=== PATIENT | female | born 1945 | race Caucasian/White ===

== ENCOUNTER 2017-10-18 10:36 | Inpatient (IN) | payer OTHER ==
[~2017-10-18] VITALS: Ht 154.9 cm; Wt 107.2 kg
[2017-10-18 10:36] VITALS: BP 116/89
[~2017-10-18 10:36] MED LIST: NKHM; VICODIN 5/500 505 MG PO
[2017-10-18 11:13] VITALS: BP 149/59
[2017-10-18] MEDS ORDERED: Motrin,Rufen800 MG PO (11:16)
[2017-10-18 11:41] LABS: BASO # 0.1 10*3/uL (0.0-0.1); EOS # 0.1 10*3/uL (0.0-0.4); EOS % 0.7 % (1.0-4.0); HEMATOCRIT 49.9 % (37.0-47.0); HEMOGLOBIN 15.9 g/dl (12.0-16.0); LYMPH # 2.1 10*3/uL (1.3-4.4); LYMPH % 20.2 % (27.0-41.0); MEAN CELL VOLUME 88.3 fl (81.0-99.0); MEAN CORPUSCULAR HGB 28.1 pg (27.0-31.0); MEAN CORPUSCULAR HGB CONC 31.9 g/dl (33.0-37.0); MEAN PLATELET VOLUME 9.9 fl (9.6-12.3); MONO # 0.9 10*3/uL (0.1-1.0); MONO % 8.7 % (3.0-9.0); NEUT % 68.7 % (47.0-73.0); PLATELET COUNT AUTOMATED 257 10*3/uL (130-400); RED BLOOD COUNT 5.65 10*6/uL (4.10-5.10); RED CELL DISTRI WIDTH 15.1 % (0-14.5); WHITE BLOOD COUNT 10.2 10*3/uL (4.8-10.8)
[2017-10-18 11:49] LABS: INTERNATIONAL NORM RATIO 0.9 (2.0-3.5)
[2017-10-18 11:59] LABS: ALBUMIN 3.6 gm/dl (3.1-4.5); ALKALINE PHOSPHATASE 115 U/L (45-117); BUN 14 mg/dl (7-24); CHLORIDE 106 mmol/L (98-107); CREATININE 1.01 mg/dL (0.55-1.02); POTASSIUM 4.5 mmol/L (3.5-5.1); SGOT/AST 11 IU/L (3-35); SGPT/ALT 19 U/L (12-78); SODIUM 141 mmol/L (136-145)
[2017-10-18 12:00] LABS: TROPONIN I < 0.015 ng/ml (<0.045)
[2017-10-18 12:35] LABS: BILIRUBIN NEGATIVE (NEGATIVE); BLOOD TRACE-LYSED (NEGATIVE); CLARITY CLEAR (CLEAR); COLOR YELLOW (YELLOW); GLUCOSE NEGATIVE (NEGATIVE); KETONE NEGATIVE (NEGATIVE); LEUKO ESTERASE NEGATIVE (NEGATIVE); NITRITE NEGATIVE (NEGATIVE); PH 5.5 (5.0-9.0); SPECIFIC GRAVITY 1.025 (1.005-1.030); UROBILINOGEN 0.2 E.U./dl (0.2-1.0)
[2017-10-18 12:43] VITALS: BP 155/69
[2017-10-18 12:58] LABS: BACTERIA 2+; RBC 0-2 rbc/hpf (0-2); WBC 0-2 wbc/hpf (0-5)
[2017-10-18 13:36] VITALS: BP 131/61
[2017-10-18 14:54] VITALS: BP 151/79
[2017-10-18 20:00] VITALS: BP 133/41
[2017-10-19] VITALS: BP 141/54
[2017-10-19 06:31] LABS: BASO # 0.1 10*3/uL (0.0-0.1); BASO % 1.5 % (0.0-1.0); EOS # 0.3 10*3/uL (0.0-0.4); EOS % 2.7 % (1.0-4.0); HEMATOCRIT 49.1 % (37.0-47.0); HEMOGLOBIN 15.1 g/dl (12.0-16.0); LYMPH # 2.5 10*3/uL (1.3-4.4); LYMPH % 26.3 % (27.0-41.0); MEAN CELL VOLUME 89.1 fl (81.0-99.0); MEAN CORPUSCULAR HGB 27.4 pg (27.0-31.0); MEAN CORPUSCULAR HGB CONC 30.8 g/dl (33.0-37.0); MEAN PLATELET VOLUME 10.5 fl (9.6-12.3); MONO # 1.1 10*3/uL (0.1-1.0); MONO % 11.8 % (3.0-9.0); NEUT # 5.4 10*3/uL (2.3-7.9); NEUT % 57.3 % (47.0-73.0); PLATELET COUNT AUTOMATED 274 10*3/uL (130-400); RED BLOOD COUNT 5.51 10*6/uL (4.10-5.10); RED CELL DISTRI WIDTH 15.2 % (0-14.5); WHITE BLOOD COUNT 9.3 10*3/uL (4.8-10.8)
[2017-10-19 06:42] LABS: ALBUMIN 3.3 gm/dl (3.1-4.5); ALKALINE PHOSPHATASE 120 U/L (45-117); BUN 14 mg/dl (7-24); CHLORIDE 107 mmol/L (98-107); CREATININE 1.04 mg/dL (0.55-1.02); HDL CHOLESTEROL 42 mg/dl (40-60); PHOSPHOROUS 4.1 mg/dL (2.5-4.9); POTASSIUM 4.8 mmol/L (3.5-5.1); SGOT/AST 18 IU/L (3-35); SGPT/ALT 17 U/L (12-78); SODIUM 141 mmol/L (136-145); TOTAL PROTEIN 7.7 gm/dL (6.4-8.2); TRIGLYCERIDES 166 mg/dl (<150); VLDL CHOLESTEROL 33 mg/dL (6-40)
[2017-10-19 06:47] LABS: CHOLESTEROL 134 mg/dL (<200); FREE T4 0.77 ng/dl (0.76-1.46); LDL CHOLESTEROL 59 mg/dL (9-159)
[2017-10-19 07:33] LABS: VITAMIN D, 25-HYDROXY 10.3 ng/mL (30-100)
[2017-10-19 08:00] VITALS: BP 155/82
[2017-10-19 12:00] VITALS: BP 125/62
[2017-10-19 16:00] VITALS: BP 136/63
[2017-10-19 20:00] VITALS: BP 130/56
[2017-10-20] VITALS: BP 120/59
[2017-10-20 08:00] VITALS: BP 142/69
[2017-10-20 12:00] VITALS: BP 140/72
[2017-10-20] MEDS ORDERED: MECLIZINE HCL25 M2 PO (14:18)
[2017-10-20] MEDS ORDERED: VITAMIN D-32000 UNI1 PO (14:18)
== END 2017-10-20 15:15 | disposition home or self-care (01) | DRG 641 ==
LOC: ED 10:36 → 5E 13:47 → EDHOLD 13:47 → 5E 14:13
PROVIDERS: Nurse Practitioner Family; Registered Nurse
DX: E86.0 Dehydration (principal); E66.01 Morbid (severe) obesity due to excess calories; Z68.41 Body mass index [BMI] 40.0-44.9, adult; K59.00 Constipation, unspecified; F17.210 Nicotine dependence, cigarettes, uncomplicated; I65.23 Occlusion and stenosis of bilateral carotid arteries; R73.03 Prediabetes; R07.9 Chest pain, unspecified; Z71.6 Tobacco abuse counseling; Z90.710 Acquired absence of both cervix and uterus; Z82.49 Family history of ischemic heart disease and other diseases of the circulatory system; Z80.42 Family history of malignant neoplasm of prostate; Z82.0 Family history of epilepsy and other diseases of the nervous system

== ENCOUNTER → 2021-10-06 | Outpatient (CLI) | payer OTHER ==
[~2021-10-06] MED LIST changes: +MECLIZINE HCL25 M2 PO; +Motrin,Rufen800 MG PO; +OMNICEF300 MG PO; +VITAMIN D-32000 UNI1 PO
== END | disposition home or self-care (01) ==
LOC: US 08:01
PROVIDERS: ATTEND Nurse Practitioner Family
DX: R74.8 Abnormal levels of other serum enzymes (principal)

== ENCOUNTER → 2021-10-14 | Day surgery (SDC) | payer OTHER ==
[2021-10-09 14:29] VITALS: BP 101/65
[~2021-10-14] VITALS: Ht 157.4 cm; Wt 103.9 kg
[2021-10-14 08:00] VITALS: BP 143/52
[2021-10-14 09:58] VITALS: BP 144/80
[2021-10-14 10:14] VITALS: BP 169/67
[2021-10-14 10:27] VITALS: BP 124/77
[2021-10-14 10:41] VITALS: BP 132/57
[2021-10-14 10:58] VITALS: BP 119/31
== END | disposition home or self-care (01) ==
LOC: SDC 10-09 13:15
PROVIDERS: ATTEND Specialist
DX: J38.7 Other diseases of larynx (principal); K21.9 Gastro-esophageal reflux disease without esophagitis; F17.210 Nicotine dependence, cigarettes, uncomplicated; E66.01 Morbid (severe) obesity due to excess calories; Z79.899 Other long term (current) drug therapy

== ENCOUNTER → 2022-05-10 | Outpatient (CLI) | payer OTHER ==
[2022-05-10 10:22] LABS: HEMATOCRIT 39.1 % (37.0-47.0); MEAN CELL VOLUME 84.3 fl (81.0-99.0); MEAN CORPUSCULAR HGB 26.1 pg (27.0-31.0); MEAN CORPUSCULAR HGB CONC 30.9 g/dl (33.0-37.0); MEAN PLATELET VOLUME 9.4 fl (9.6-12.3); PLATELET COUNT AUTOMATED 498 10*3/uL (130-400); RED BLOOD COUNT 4.64 10*6/uL (4.10-5.10); RED CELL DISTRI WIDTH 17.1 % (0-14.5); WHITE BLOOD COUNT 10.6 10*3/uL (4.8-10.8)
[2022-05-10 10:37] LABS: MANUAL DIFF REFLEX YES
[2022-05-10 10:56] LABS: CREATININE 1.2 mg/dL (0.55-1.02); POTASSIUM 4.4 mmol/L (3.4-5.1)
[2022-05-10 11:02] LABS: BASOPHILS 2 % (0-1); TOTAL CELLS COUNTED 100 #CELLS
[2022-05-10 11:03] LABS: PLATELET SUFFICIENCY HIGH (NORMAL); POLYCHROMASIA SLIGHT; ROULEAUX MODERATE
[2022-05-10 13:54] LABS: VITAMIN D, 25-HYDROXY 15.1 ng/mL (30-100)
[2022-05-11 03:06] LABS: TOTAL PROTEIN, SERUM 9.6 g/dL (6.0-8.5)
[2022-05-11 15:07] LABS: A/G RATIO 0.5 (0.7-1.7); ALBUMIN 3.2 g/dL (2.9-4.4); ALPHA-1-GLOBULIN 0.5 g/dL (0.0-0.4); ALPHA-2-GLOBULIN 0.9 g/dL (0.4-1.0); BETA GLOBULIN 0.8 g/dL (0.7-1.3); GAMMA GLOBULIN 4.3 g/dL (0.4-1.8); GLOBULIN, TOTAL 6.4 g/dL (2.2-3.9)
[2022-05-12 00:06] LABS: FREE KAPPA LIGHT CHAINS 19.1 mg/L (3.3-19.4); FREE LAMBDA LIGHT CHAINS 183.9 mg/L (5.7-26.3); KAPPA/LAMBDA RATIO 0.1 (0.26-1.65)
== END | disposition home or self-care (01) ==
LOC: LAB 09:29
PROVIDERS: ATTEND Internal Medicine Nephrology
DX: N18.32 Chronic kidney disease, stage 3b (principal); R79.89 Other specified abnormal findings of blood chemistry; N25.81 Secondary hyperparathyroidism of renal origin; D63.1 Anemia in chronic kidney disease

== ENCOUNTER 2023-08-18 16:49 | Inpatient (IN) | payer OTHER ==
[~2023-08-18] VITALS: Ht 157.4 cm; Wt 89.0 kg
[2023-08-18 16:53] VITALS: BP 110/60
[2023-08-18 17:15] LABS: HEMATOCRIT 30.5 % (37.0-47.0); MEAN CELL VOLUME 70.3 fl (81.0-99.0); MEAN CORPUSCULAR HGB 19.6 pg (27.0-31.0); MEAN CORPUSCULAR HGB CONC 27.9 g/dl (33.0-37.0); MEAN PLATELET VOLUME 9.9 fl (9.6-12.3); PLATELET COUNT AUTOMATED 525 10*3/uL (130-400); RED BLOOD COUNT 4.34 10*6/uL (4.10-5.10); RED CELL DISTRI WIDTH 18.2 % (0-14.5); WHITE BLOOD COUNT 23.1 10*3/uL (4.8-10.8)
[2023-08-18 17:31] LABS: ACT PARTIAL THROMBO TIME 34.5 SECONDS (20.0-32.1); POTASSIUM 4.5 mmol/L (3.4-5.1); TOTAL PROTEIN 9.5 gm/dL (6.0-8.0)
[2023-08-18] MEDS ORDERED: Ceftriaxone Sodium 1 GM/10 ML SYR IV ONE (17:40)
[2023-08-18] MEDS ORDERED: Albuterol Sulf/Ipratropium 3 ML VIAL NEB ONE (17:40)
[2023-08-18] MEDS ORDERED: AZITHROMYCIN 250 ML IV ONE (17:40)
[2023-08-18] MEDS ORDERED: ACETAMINOPHEN 325 MG TAB PO ONE (17:40)
[2023-08-18] MEDS ORDERED: SODIUM CHLORIDE 0.9% 1,000 ML IV SCH (17:40)
[2023-08-18 17:41] LABS: MANUAL DIFF REFLEX YES
[2023-08-18 18:05] LABS: TOTAL CELLS COUNTED 100 #CELLS
[2023-08-18 18:06] LABS: PLATELET SUFFICIENCY HIGH (NORMAL); ROULEAUX MODERATE
[2023-08-18] MEDS ORDERED: Magnesium Hydroxide 30 ML UDC PO PRN (18:10)
[2023-08-18] MEDS ORDERED: Ondansetron Hydrochloride 4 MG/2 ML VIAL IV PRN (18:10)
[2023-08-18] MEDS ORDERED: ACETAMINOPHEN 325 MG TAB PO PRN (18:10)
[2023-08-18] MEDS ORDERED: SODIUM CHLORIDE 0.9% 1,000 ML IV ONE (18:15)
[2023-08-18] MEDS ORDERED: REMDESIVIR 200 MG in SODIUM CHLORIDE 0.9% 210 ML IV ONE (18:55)
[2023-08-18] MEDS ORDERED: Dexamethasone Sodium Phospha 4 MG/ML VIAL IV SCH (19:00)
[2023-08-18 19:39] VITALS: BP 88/42
[2023-08-18 20:56] VITALS: BP 100/52
[2023-08-18] MEDS ORDERED: HEPARIN SODIUM 5,000 UNIT/ML VIAL SC SCH (22:00)
[2023-08-18 22:23] VITALS: BP 93/46
[2023-08-18 23:00] VITALS: BP 102/54
[2023-08-19] VITALS (7 sets, daily range): BP systolic 97–132; BP diastolic 53–82
[2023-08-19 00:40] LABS: BILIRUBIN Negative (Negative); BLOOD 2+ (Negative); CLARITY Cloudy (Clear); COLOR Dark Yellow (Yellow); GLUCOSE Negative (Negative); KETONE Trace (Negative); LEUKO ESTERASE 2+ (Negative); NITRITE Positive (Negative); SPECIFIC GRAVITY 1.025 (1.001-1.030)
[2023-08-19 01:03] LABS: BACTERIA 3+; RBC 21-30 rbc/hpf (0-2); WBC 31-40 wbc/hpf (0-5)
[2023-08-19 06:24] LABS: BASO % 0.1 % (0.0-1.0); EOS % 0.2 % (1.0-4.0); LYMPH # 0.7 10*3/uL (1.3-4.4); LYMPH % 4.2 % (27.0-41.0); MEAN CELL VOLUME 70.9 fl (81.0-99.0); MEAN CORPUSCULAR HGB 19.7 pg (27.0-31.0); MEAN CORPUSCULAR HGB CONC 27.8 g/dl (33.0-37.0); MEAN PLATELET VOLUME 10.4 fl (9.6-12.3); MONO # 0.8 10*3/uL (0.1-1.0); MONO % 4.7 % (3.0-9.0); NEUT # 15.2 10*3/uL (2.3-7.9); NEUT % 89.5 % (47.0-73.0); PLATELET COUNT AUTOMATED 442 10*3/uL (130-400); RED BLOOD COUNT 3.81 10*6/uL (4.10-5.10); RED CELL DISTRI WIDTH 18.3 % (0-14.5)
[2023-08-19 06:46] LABS: ALKALINE PHOSPHATASE 92 U/L (46-116); BUN 31 mg/dl (9-23); CHLORIDE 108 mmol/L (98-107); CHOLESTEROL 37 mg/dL (<200); LDL CHOLESTEROL 17 mg/dL (9-159); POTASSIUM 4.6 mmol/L (3.4-5.1); SGPT/ALT 13 U/L (5-49); TOTAL PROTEIN 8.5 gm/dL (6.0-8.0); TRIGLYCERIDES 44 mg/dl (<150)
[2023-08-19] MEDS ORDERED: Ceftriaxone Sodium 1 GM in SYRINGE INFUSION 10 ML IV SCH (17:00)
[2023-08-19] MEDS ORDERED: AZITHROMYCIN 250 ML IV SCH (18:00)
[2023-08-19] MEDS ORDERED: REMDESIVIR 100 MG in SODIUM CHLORIDE 0.9% 230 ML IV SCH (18:00)
[2023-08-20 00:14] VITALS: BP 128/82
[2023-08-20 06:31] LABS: HEMATOCRIT 29.7 % (37.0-47.0); MANUAL DIFF REFLEX YES; MEAN CELL VOLUME 71.6 fl (81.0-99.0); MEAN CORPUSCULAR HGB CONC 27.9 g/dl (33.0-37.0); MEAN PLATELET VOLUME 10.1 fl (9.6-12.3); PLATELET COUNT AUTOMATED 532 10*3/uL (130-400); RED BLOOD COUNT 4.15 10*6/uL (4.10-5.10); RED CELL DISTRI WIDTH 17.9 % (0-14.5); WHITE BLOOD COUNT 25.3 10*3/uL (4.8-10.8)
[2023-08-20 06:52] LABS: BUN 32 mg/dl (9-23); CHLORIDE 108 mmol/L (98-107); POTASSIUM 4.6 mmol/L (3.4-5.1)
[2023-08-20 07:03] LABS: POLYCHROMASIA SLIGHT; TOTAL CELLS COUNTED 100 #CELLS
[2023-08-20 07:04] LABS: BURR CELLS MODERATE; MICROCYTOSIS SLIGHT; PLATELET SUFFICIENCY HIGH (NORMAL); ROULEAUX MODERATE; TARGET CELLS FEW; TOXIC GRANULATION SLIGHT
[2023-08-20 08:00] VITALS: BP 147/92
[2023-08-20 12:00] VITALS: BP 129/70
[2023-08-20 16:00] VITALS: BP 104/51
[2023-08-20 20:00] VITALS: BP 108/61
[2023-08-21] VITALS: BP 126/79
[2023-08-21 07:30] LABS: BASO % 0.2 % (0.0-1.0); HEMATOCRIT 30.4 % (37.0-47.0); LYMPH # 0.8 10*3/uL (1.3-4.4); MEAN CELL VOLUME 71.5 fl (81.0-99.0); MEAN CORPUSCULAR HGB 20.2 pg (27.0-31.0); MEAN CORPUSCULAR HGB CONC 28.3 g/dl (33.0-37.0); MEAN PLATELET VOLUME 10.1 fl (9.6-12.3); MONO # 1.2 10*3/uL (0.1-1.0); MONO % 6.4 % (3.0-9.0); NEUT # 16.9 10*3/uL (2.3-7.9); PLATELET COUNT AUTOMATED 644 10*3/uL (130-400); RED BLOOD COUNT 4.25 10*6/uL (4.10-5.10); RED CELL DISTRI WIDTH 18.9 % (0-14.5); WHITE BLOOD COUNT 19.2 10*3/uL (4.8-10.8)
[2023-08-21 08:00] VITALS: BP 128/58
[2023-08-21 08:09] LABS: POTASSIUM 4.6 mmol/L (3.4-5.1)
[2023-08-21 12:00] VITALS: BP 137/69
[2023-08-21 16:00] VITALS: BP 116/75
[2023-08-21 20:00] VITALS: BP 121/69
[2023-08-21] MEDS ORDERED: CALCIUM (TUMS) 500MG PO PRN (20:55)
[2023-08-22] VITALS: BP 144/85
[2023-08-22 06:07] LABS: HEMATOCRIT 30.4 % (37.0-47.0); MEAN CELL VOLUME 70.9 fl (81.0-99.0); MEAN CORPUSCULAR HGB 19.8 pg (27.0-31.0); MEAN PLATELET VOLUME 10.2 fl (9.6-12.3); PLATELET COUNT AUTOMATED 554 10*3/uL (130-400); RED BLOOD COUNT 4.29 10*6/uL (4.10-5.10); RED CELL DISTRI WIDTH 18.8 % (0-14.5); WHITE BLOOD COUNT 12.4 10*3/uL (4.8-10.8)
[2023-08-22 06:19] LABS: CHLORIDE 108 mmol/L (98-107); MANUAL DIFF REFLEX YES; POTASSIUM 4.8 mmol/L (3.4-5.1)
[2023-08-22 06:24] LABS: BUN 22 mg/dl (9-23)
[2023-08-22 07:16] LABS: MICROCYTOSIS SLIGHT; PLATELET SUFFICIENCY HIGH (NORMAL); POLYCHROMASIA SLIGHT; TOTAL CELLS COUNTED 100 #CELLS
[2023-08-22 07:17] LABS: ROULEAUX MODERATE
[2023-08-22 08:00] VITALS: BP 136/65
[2023-08-22] MEDS ORDERED: DEXAMETHASONE6 MG PO (11:02)
[2023-08-22] MEDS ORDERED: ZITHROMAX250 MG PO (11:02)
[2023-08-22 12:00] VITALS: BP 121/57
== END 2023-08-22 13:19 | disposition home or self-care (01) | DRG 871 ==
LOC: ED 16:49 → 4E 17:53 → EDHOLD 17:53 → 4E 21:52
PROVIDERS: Emergency Medicine; Student in an Organized Health Care Education/Training Program; ADMIT Internal Medicine; ATTEND Internal Medicine
PROC: XW033E5 Introduction of Remdesivir Anti-infective into Peripheral Vein, Percutaneous Approach, New Technology Group 5 (ICD-10-PCS; principal; 2023-08-19)
DX: A41.9 Sepsis, unspecified organism (principal); E43 Unspecified severe protein-calorie malnutrition; J96.01 Acute respiratory failure with hypoxia; N17.0 Acute kidney failure with tubular necrosis; U07.1 COVID-19; E87.1 Hypo-osmolality and hyponatremia; E66.01 Morbid (severe) obesity due to excess calories; R65.20 Severe sepsis without septic shock; D50.9 Iron deficiency anemia, unspecified; D75.839 Thrombocytosis, unspecified; E83.51 Hypocalcemia; R73.9 Hyperglycemia, unspecified; Z68.35 Body mass index [BMI] 35.0-35.9, adult; Z88.8 Allergy status to other drugs, medicaments and biological substances; Z90.710 Acquired absence of both cervix and uterus; Z98.891 History of uterine scar from previous surgery; Z80.42 Family history of malignant neoplasm of prostate; Z81.8 Family history of other mental and behavioral disorders; Z71.6 Tobacco abuse counseling

== ENCOUNTER → 2023-09-28 | Day surgery (SDC) | payer OTHER ==
[~2023-09-28] VITALS: Ht 154.9 cm; Wt 86.2 kg
[~2023-09-28] MED LIST changes: +Balanced Salt Solution 500 ML OPH SCH; +Cefuroxime Sodium 5 MG in BALANCED SALT IRRIG SOLN NO.2 0.5 ML,SYRINGE, DISPOSABLE, 10 ... IO SCH; +DEXAMETHASONE6 MG PO; +Midazolam Hydrochloride 2 MG/2 ML VIAL IV ONE; +OFLOXACIN 0.3% 5 ML BOTTLE ONE; +OFLOXACIN 0.3% 5 ML BOTTLE OPH SCH; +PHENYLEPHRINE/KETOROLAC 4 ML in Balanced Salt Solution 500 ML OPH SCH; +POVIDONE IODINE 5% OPHTHALMIC 30 ML BOTTLE OPH ONE; +POVIDONE IODINE 5% OPHTHALMIC 30 ML BOTTLE OPH SCH; +Phenylephrine Hydrochloride 2 ML BOT OPH ONE; +Phenylephrine Hydrochloride 2 ML BOT OPH SCH; +Proparacaine Hydrochloride 15 ML BOT OPH ONE; +Proparacaine Hydrochloride 15 ML BOT OPH SCH; +SODIUM CHLORIDE 0.9% 1,000 ML IV ONE; +SODIUM CHLORIDE 0.9% 1,000 ML IV SCH; +TROPICAMIDE 3 ML BOT OPH ONE; +TROPICAMIDE 3 ML BOT OPH SCH; +Tetracaine Hydrochloride 0.5% 4 ML BOT OPH ONE; +Tetracaine Hydrochloride 0.5% 4 ML BOT OPH SCH; +ZITHROMAX250 MG PO; +prednisoLONE acetate 1% OPHTHALMIC 5 ML BOT OPH ONE; +prednisoLONE acetate 1% OPHTHALMIC 5 ML BOT OPH SCH
[2023-09-28 12:00] VITALS: BP 116/56
[2023-09-28 13:35] VITALS: BP 139/61
[2023-09-28 13:50] VITALS: BP 131/96
[2023-09-28 14:05] VITALS: BP 99/44
[2023-09-28 14:20] VITALS: BP 106/56
== END ==
LOC: SDC 09-23 13:15
PROVIDERS: ATTEND Ophthalmology
DX: H25.11 Age-related nuclear cataract, right eye (principal); K21.9 Gastro-esophageal reflux disease without esophagitis; F17.210 Nicotine dependence, cigarettes, uncomplicated; E66.01 Morbid (severe) obesity due to excess calories; Z86.16 Personal history of COVID-19; Z98.891 History of uterine scar from previous surgery; Z90.710 Acquired absence of both cervix and uterus; Z98.890 Other specified postprocedural states; Z79.899 Other long term (current) drug therapy

== ENCOUNTER → 2023-11-09 | Day surgery (SDC) | payer OTHER ==
[~2023-11-09] VITALS: Ht 154.9 cm; Wt 86.2 kg
[~2023-11-09] MED LIST changes: -Midazolam Hydrochloride 2 MG/2 ML VIAL IV ONE; +Midazolam Hydrochloride 5 MG/5 ML VIAL IV ONE; -OFLOXACIN 0.3% 5 ML BOTTLE ONE; -Phenylephrine Hydrochloride 2 ML BOT OPH ONE; -Proparacaine Hydrochloride 15 ML BOT OPH ONE; -SODIUM CHLORIDE 0.9% 1,000 ML IV ONE; +TETRACAINE HCL 10 DROP BOT OPH SCH; -TROPICAMIDE 3 ML BOT OPH ONE; -Tetracaine Hydrochloride 0.5% 4 ML BOT OPH ONE
[2023-11-09 12:26] VITALS: BP 121/73
[2023-11-09 13:12] VITALS: BP 110/48
[2023-11-09 13:27] VITALS: BP 107/53
[2023-11-09 13:43] VITALS: BP 96/40
== END | disposition home or self-care (01) ==
LOC: SDC 11-04 14:45
PROVIDERS: ATTEND Ophthalmology
DX: H25.12 Age-related nuclear cataract, left eye (principal); K21.9 Gastro-esophageal reflux disease without esophagitis; E66.01 Morbid (severe) obesity due to excess calories; F17.210 Nicotine dependence, cigarettes, uncomplicated; Z98.891 History of uterine scar from previous surgery; Z86.16 Personal history of COVID-19; Z90.710 Acquired absence of both cervix and uterus; Z98.890 Other specified postprocedural states; Z79.899 Other long term (current) drug therapy; Z88.8 Allergy status to other drugs, medicaments and biological substances

== ENCOUNTER → 2024-09-17 | Outpatient (CLI) | payer OTHER ==
[~2024-09-17] MED LIST changes: -Balanced Salt Solution 500 ML OPH SCH; -Cefuroxime Sodium 5 MG in BALANCED SALT IRRIG SOLN NO.2 0.5 ML,SYRINGE, DISPOSABLE, 10 ... IO SCH; +FERROUS SULFAT325 MG PO; -Midazolam Hydrochloride 5 MG/5 ML VIAL IV ONE; -OFLOXACIN 0.3% 5 ML BOTTLE OPH SCH; -PHENYLEPHRINE/KETOROLAC 4 ML in Balanced Salt Solution 500 ML OPH SCH; -POVIDONE IODINE 5% OPHTHALMIC 30 ML BOTTLE OPH ONE; -POVIDONE IODINE 5% OPHTHALMIC 30 ML BOTTLE OPH SCH; +PROTONIX40 MG PO; -Phenylephrine Hydrochloride 2 ML BOT OPH SCH; -Proparacaine Hydrochloride 15 ML BOT OPH SCH; -SODIUM CHLORIDE 0.9% 1,000 ML IV SCH; -TETRACAINE HCL 10 DROP BOT OPH SCH; -TROPICAMIDE 3 ML BOT OPH SCH; -Tetracaine Hydrochloride 0.5% 4 ML BOT OPH SCH; +VISTARIL25 MG PO; -prednisoLONE acetate 1% OPHTHALMIC 5 ML BOT OPH ONE; -prednisoLONE acetate 1% OPHTHALMIC 5 ML BOT OPH SCH
[2024-09-18 16:07] LABS: A/G RATIO 0.4 (0.7-1.7); ALBUMIN 2.7 g/dL (2.9-4.4); ALPHA-1-GLOBULIN 0.6 g/dL (0.0-0.4); BETA GLOBULIN 0.9 g/dL (0.7-1.3); GAMMA GLOBULIN 4.3 g/dL (0.4-1.8); GLOBULIN, TOTAL 6.8 g/dL (2.2-3.9)
== END | disposition home or self-care (01) ==
LOC: LAB 01:01 → US 08:30 → LAB 08:30
PROVIDERS: ATTEND Internal Medicine
DX: N28.1 Cyst of kidney, acquired (principal); R79.89 Other specified abnormal findings of blood chemistry; Z13.89 Encounter for screening for other disorder; Z13.0 Encounter for screening for diseases of the blood and blood-forming organs and certain disorders involving the immune mechanism; Z13.1 Encounter for screening for diabetes mellitus; Z13.228 Encounter for screening for other metabolic disorders

== ENCOUNTER 2024-12-25 15:30 | Emergency (ER) | payer OTHER ==
[~2024-12-25] VITALS: Ht 149.8 cm; Wt 81.6 kg
== END 2024-12-25 18:23 | disposition home or self-care (01) ==
LOC: ED 15:30
DX: S40.022A Contusion of left upper arm, initial encounter (principal); K21.9 Gastro-esophageal reflux disease without esophagitis; Z79.899 Other long term (current) drug therapy; Z90.710 Acquired absence of both cervix and uterus; Z98.890 Other specified postprocedural states; X58.XXXA Exposure to other specified factors, initial encounter; Y93.89 Activity, other specified; Y92.89 Other specified places as the place of occurrence of the external cause; Y99.8 Other external cause status

== ENCOUNTER → 2024-12-26 | Outpatient (CLI) | payer OTHER | END | disposition home or self-care (01) | LOC: US 12:08 | PROVIDERS: ATTEND Nurse Practitioner Family | DX: I82.401 Acute embolism and thrombosis of unspecified deep veins of right lower extremity (principal); R22.33 Localized swelling, mass and lump, upper limb, bilateral ==